=== PATIENT | male | born 1945 | race Caucasian/White ===

== ENCOUNTER 2019-11-16 21:26 | Emergency (ER) | payer MEDICARE, OTHER ==
[~2019-11-16] VITALS: Ht 177.8 cm; Wt 102.1 kg
[2019-11-16] MEDS ORDERED: LEVO-T25 MCG PO (21:41)
[2019-11-16] MEDS ORDERED: LIPITOR10 MG PO (21:42)
[2019-11-16] MEDS ORDERED: IRBESARTAN-HCT1 EACH PO (21:42)
[2019-11-16] MEDS ORDERED: NOXIFOL-D32500 UNIT PO (21:42)
[2019-11-16] MEDS ORDERED: FISH OIL 1,001000 M3 PO (21:43)
[2019-11-16] MEDS ORDERED: NAPROXEN SODIU220 M2 PO (21:44)
[2019-11-16 22:11] LABS: ABSOLUTE BASOPHILS 0.1 thou/uL (0.0-0.2); ABSOLUTE EOSINOPHILS 0.1 thou/uL (0.0-0.7); ABSOLUTE LYMPHOCYTES 1.7 thou/uL (0.8-5.3); ABSOLUTE MONOCYTES 0.4 thou/uL (0.0-1.2); ABSOLUTE NEUTROPHILS 4.2 thou/uL (1.6-8.1); BASOPHILS 1.3 %; EOSINOPHILS 1.7 %; HEMATOCRIT 40.8 % (42.0-52.0); LYMPHOCYTES 25.8 %; MCH 31.2 pg (26.0-34.0); MCHC 34.4 g/dL (28.0-37.0); MCV 90.9 fL (80.0-100.0); MONOCYTES 6.6 %; NUCLEATED RBCS 0 /100WBC; PLATELET COUNT* 179 thou/uL (150-400); POLYS 64.6 %; RBC 4.49 mil/uL (4.50-6.00); RDW-CV 13.3 % (10.5-14.5); WBC 6.6 thou/uL (4.0-11.0)
[2019-11-16 22:21] LABS: PROTIME 10.2 Seconds (9.20-11.50)
[2019-11-16 22:40] VITALS: BP 131/76
== END 2019-11-16 22:40 | disposition home or self-care (01) ==
LOC: M.ERS 21:26
PROVIDERS: Personal Emergency Response Attendant
DX: S81.802A Unspecified open wound, left lower leg, initial encounter (principal); I86.8 Varicose veins of other specified sites; G47.30 Sleep apnea, unspecified; Z88.1 Allergy status to other antibiotic agents; X58.XXXA Exposure to other specified factors, initial encounter; Y93.89 Activity, other specified; Y92.89 Other specified places as the place of occurrence of the external cause; Y99.8 Other external cause status